=== PATIENT | female | born 1980 | race Caucasian/White ===

== ENCOUNTER 2023-01-16 16:10 | Emergency (ER) | payer OTHER ==
[2023-01-16] MEDS ORDERED: Acetaminophen 325 MG Suppository ONE (16:46)
[2023-01-16 17:16] LABS: SARS-CoV-2 NAA Rapid Test Not Detected (NotDetected)
[2023-01-16 17:20] LABS: PTT 24.9 sec (22.0-33.0); Prothrombin Time 10.9 sec (9.5-12.1)
[2023-01-16 17:23] LABS: Bilirubin Neg (Negative); Blood, Urine 10 (Negative); Clarity Clear (Clear); Glucose, Urine (Dipstick) Normal (Negative); Ketone, Urine Negative (Negative); Leukocyte 25 (Negative); Nitrite Negative (Negative); Protein, Urine (Dipstick) 30 mg/dl (Neg-Trace); Urobilinogen Normal mg/dL (Less than 2)
[2023-01-16 17:24] LABS: ALT (SGPT) 71 U/L (8-55); AST (SGOT) 91 U/L (5-34); Albumin 3.9 g/dL (3.5-5.0); Alkaline Phosphatase 116 U/L (40-110); Anion Gap 20 mmol/L (10-20); BUN (Urea Nitrogen) 34 mg/dL (7.0-18.7); Bilirubin, Total 0.4 mg/dL (0.2-1.2); Calc. Creatinine Clearance 0 mL/min (70-130); Calcium 8.4 mg/dL (7.8-10.44); Carbon Dioxide 25 mmol/L (22-29); Chloride 99 mmol/L (98-107); Estimated GFR 45; Globulin 3.3 g/dL (2.4-3.5); Glucose 114 mg/dL (70-105); Lipase 6 U/L (8-78); Magnesium 2.2 mg/dL (1.6-2.6); Potassium 3.9 mmol/L (3.5-5.1); Protein, Total 7.2 g/dL (6.0-8.3); Sodium 140 mmol/L (136-145)
[2023-01-16 17:47] LABS: Actual Bicarbonate (HCO3v) 25.5 mEq/L (22-28); Analyzer IN Cardio CS ER; Base Excess -1.7 mEq/L (-2 - +2); Calcium, Ionized (venous) 1.05 mmol/L (1.16-1.32); Chloride (VBG) 97 mmol/L (98-106); Hematocrit-VBG 45 % (36.0-47.0); Hemoglobin (Hb) 15.2 g/dL (11.7-15.5); Puncture Site Other Site; RapidComm Collect By LAB; Sodium 140 mmol/L (133-146); pH (venous) 7.303 (7.32-7.43)
[2023-01-16 17:53] LABS: Troponin I 1.117 ng/mL (< 0.028)
[2023-01-16 18:01] LABS: #Eosinphils 0.1 10x3/uL (0.0-0.5); #Monocytes 0.6 10x3/uL (0.0-1.1); #Neutrophils 15.4 10x3/uL (1.5-8.4); %Basophils 0.2 % (0.0-2.0); %Eosinophils 0.3 % (0.0-6.0); %Lymphocytes 7.3 % (18.0-47.0); %Monocytes 3.4 % (0.0-10.0); %Neutrophils 88.5 % (40.0-75.0); Hematocrit 40.8 % (34.9-44.5); Hemoglobin 13.6 g/dL (12.0-15.5); Mean Corpuscular HGB CONC 33.3 g/dL (32.0-36.0); Mean Corpuscular Hemoglobin 29.7 pg (27.0-33.0); Mean Corpuscular Volume 89.1 fl (81.6-98.3); Mean Platelet Volume 12.2 fl (7.4-10.4); Platelet Count 106 10x3/uL (150-450); RBC Distribution Width 12.8 % (11.5-14.5); Red Blood Cell (RBC) Count 4.58 10x6/uL (3.90-5.03); White Blood Cell (WBC) Count 17.4 10x3/uL (3.5-10.5)
[2023-01-16 18:02] LABS: Large Platelets SLIGHT (None Seen); Platelet Clumps SLIGHT
[2023-01-16 18:04] LABS: Giant Platelets SLIGHT HPF (0-5); Platelet Adequacy Comment Appears Decreased
[2023-01-16] MEDS ORDERED: Furosemide 40 MG/4 ML VIAL ONE (18:07)
[2023-01-16] MEDS ORDERED: Vancomycin 1 GM VIAL ONE (18:08)
[2023-01-16] MEDS ORDERED: Cefepime 1 GM VIAL ONE (18:08)
[2023-01-16 18:39] LABS: CAUTI Indications for Culture Alt mental st,lethar
[2023-01-16 18:41] LABS: Bacteria/HPF 2+ HPF (None Seen); Squamous Epithelial 0-3 HPF (0-3)
[2023-01-16] MEDS ORDERED: levETIRAcetam 500 MG/5 ML VIAL ONE (18:43)
[2023-01-16 18:47] LABS: Urine Culture Reflex No No
[2023-01-16] MEDS ORDERED: cefTRIAXone (ROCEPHIN) 1 GM VIAL ONE (19:37)
[2023-01-16 19:58] LABS: Lactic Acid 1.2 mmol/L (0.5-2.2)
== END 2023-01-16 21:11 ==
LOC: CSHERS 16:10
DX: A41.9 Sepsis, unspecified organism (principal); R41.82 Altered mental status, unspecified; I50.9 Heart failure, unspecified; E87.29 Other acidosis
CPT/HCPCS: 0240U; 51702; 70450; 75809; 81001; 82805; 83605; 83690; 83735; 83880; 84145; 84484; 85610; 85730; 87040; 87086; 93005; 94644; 94760; 96365; 96367; 96375; 99285; J1953; 36415; 80053; 84443; 85025; J0692; J0696; J1940; J3370